=== PATIENT | male | born 1975 ===

== ENCOUNTER 2018-08-08 10:14 | Emergency (ER) | payer SELFPAY ==
[2018-08-08] MEDS ORDERED: Meclizine HCl 25 MG TAB ONE (14:26)
--- NOTE | 2018-08-13 14:34 | EKG ---
Test Reason : Blood Pressure : / mmHG Vent. Rate : 060 BPM Atrial Rate : 060 BPM P-R Int : 170 ms QRS Dur : 102 ms QT Int : 394 ms P-R-T Axes : 038 018 012 degrees QTc Int : 394 ms Normal sinus rhythm Normal ECG Confirmed by WOJCIECH MCKAY ([id number]), social media editor [address] ([id number]) on 08/13/2018 2:34:17 PM Referred By: Confirmed By:WOJCIECH MCKAY
== END 2018-08-08 15:24 | disposition home or self-care (01) ==
LOC: ERS 10:14
DX: R42 Dizziness and giddiness (principal)
CPT/HCPCS: 93005; J8499